=== PATIENT | male | born 1935 | race Caucasian/White ===

== ENCOUNTER 2016-05-14 11:36 | Outpatient (CLI) | payer MEDICARE, BC ==
[~2016-05-14 11:36] MED LIST: FINASTERIDE PO; LEVO137T24 PO
[2016-05-14 13:25] LABS: BASOPHILS % (AUTO) 0.5 % (0.0-2.0); EOSINOPHILS % (AUTO) 0.5 % (0.0-7.0); HEMOGLOBIN 13.4 g/dL (14.0-18.0); LYMPHOCYTES # (AUTO) 1.3 K/uL (0.8-4.8); LYMPHOCYTES % (AUTO) 23.4 % (20.5-51.5); MEAN CORPUSCULAR HEMOGLOBIN 30.1 uug (27.0-31.0); MEAN CORPUSCULAR HGB CONC 33 g/dL (32.0-37.0); MEAN CORPUSCULAR VOLUME 92.2 fL (82.0-92.0); MONOCYTES # (AUTO) 0.6 K/uL (0.1-1.30); MONOCYTES % (AUTO) 10.4 % (0.0-11.0); NEUTROPHILS # (AUTO) 3.8 K/uL (1.8-8.9); NEUTROPHILS % (AUTO) 65.2 % (38.5-71.5); PLATELET COUNT (AUTO) 199 K/uL (150-450); RED BLOOD CELL COUNT(AUTO) 4.45 MIL/uL (4.70-6.10); RED CELL DISTRIBUTION WIDTH 13.3 % (11.5-14.5); WHITE BLOOD COUNT (AUTO) 5.7 K/uL (4.0-11.2)
[2016-05-14 13:32] LABS: *BILIRUBIN,URIN NEGATIVE (NEGATIVE); *BLOOD, URINE NEGATIVE (NEGATIVE); *CLARITY,URINE CLEAR (CLEAR); *COLOR,URINE STRAW (YELLOW); *KETONES,URINE NEGATIVE (NEGATIVE); *PROTEIN,URINE NEGATIVE (NEGATIVE); *UROBILINOGEN,URINE 0.2 E.U./dl (NORMAL); LEUKOCYTE ESTERASE ,URINE TRACE (NEGATIVE); NITRITE, URINE NEGATIVE (NEGATIVE); UGLUCOSE NEGATIVE (NEGATIVE)
[2016-05-14 13:54] LABS: BACTERIA,URINE FEW /HPF (NONE SEEN); MUCUS,URINE MODERATE /LPF (0-FEW); RBC,URINE 0-3 /HPF (0-3); SQUAMOUS EPITHELIAL CELL,UR FEW /HPF (NONE SEEN)
== END 2016-05-14 23:59 | disposition home or self-care (01) ==
LOC: LAB 11:36
DX: N39.0 Urinary tract infection, site not specified (principal)
CPT/HCPCS: 36415; 85025; 87086

== ENCOUNTER 2021-02-02 08:20 | Inpatient (IN) | payer MEDICARE, BC ==
[~2021-02-02] VITALS: Ht 172.7 cm; Wt 65.8 kg
--- NOTE | 2021-02-02 08:30 | NUR ---
PT IS IN ROOM #2A. DR SCOTT EVALUATED THE PT.
[2021-02-02] MEDS ORDERED: PHENAZOPYRIDINE HCL 100 MG TABLET ONE (08:59)
[2021-02-02] MEDS ORDERED: ONDANSETRON 4 MG/2 ML VIAL ONE (08:59)
[2021-02-02] MEDS ORDERED: MORPHINE SULFATE 2 MG/1 ML DISP.SYRIN ONE (08:59)
[2021-02-02] MEDS ORDERED: ONDANSETRON 4 MG/2 ML VIAL IV ONE (09:00)
[2021-02-02] MEDS ORDERED: IV NORMAL SALINE 1000 ML BAG IV ONE ×2 (09:00→11:00)
[2021-02-02] MEDS ORDERED: CEFTRIAXONE 1 G in IV DEXTROSE 5% 50 ML IV ONE (09:00)
[2021-02-02] MEDS ORDERED: HYDROMORPHONE 1 MG/1 ML DISP.SYRIN IV ONE ×2 (09:00→09:15)
[2021-02-02] MEDS ORDERED: PHENAZOPYRIDINE HCL 100 MG TABLET PO ONE (09:00)
[2021-02-02] MEDS ORDERED: MORPHINE SULFATE 2 MG/1 ML DISP.SYRIN IV ONE (09:00)
[2021-02-02] MEDS ORDERED: HYDROMORPHONE 1 MG/1 ML DISP.SYRIN ONE (09:06)
[2021-02-02] MEDS ORDERED: ACETAMINOPHEN ES 500 MG TABLET ONE (09:12)
[2021-02-02] MEDS ORDERED: ACETAMINOPHEN ES 500 MG TABLET PO ONE (09:15)
[2021-02-02] MEDS ORDERED: CEFTRIAXONE /D5W 50ML IVPB **ER PYXIS IV ONE (09:19)
[2021-02-02] MEDS ORDERED: HYDROMORPHONE 2 MG/1 ML DISP.SYRIN ONE (09:25)
--- NOTE | 2021-02-02 09:33 | NUR ---
PT DOES NOT REMEMBER ALL THE NAMES OF HIS HOME MEDICATION.
[2021-02-02 09:43] LABS: BILIRUBIN,DIRECT 0.1 mg/dL (0.0-0.2); BILIRUBIN,TOTAL 0.7 mg/dL (0.2-1.0); CREATININE 1.1 mg/dL (0.6-1.3); POTASSIUM 3.9 mmol/L (3.5-5.1); TOTAL PROTEIN, SERUM 7.7 g/dL (6.4-8.2)
[2021-02-02 09:48] LABS: CREATINE KINASE, TOTAL 109 U/L (39-308)
[2021-02-02 10:17] LABS: *BILIRUBIN,URIN NEGATIVE (NEGATIVE); *BLOOD, URINE 3+ (NEGATIVE); *CLARITY,URINE TURBID (CLEAR); *COLOR,URINE RED (YELLOW); *KETONES,URINE NEGATIVE (NEGATIVE); *UROBILINOGEN,URINE 0.2 E.U./dl (NORMAL); LEUKOCYTE ESTERASE ,URINE 2+ (NEGATIVE); NITRITE, URINE NEGATIVE (NEGATIVE); UGLUCOSE NEGATIVE (NEGATIVE)
[2021-02-02 10:23] LABS: HEMATOCRIT 42.9 % (36.7-47.1); MEAN CORPUSCULAR HEMOGLOBIN 30.9 uug (23.8-33.4); MEAN CORPUSCULAR VOLUME 93.5 fL (73.0-96.2); PLATELET COUNT (AUTO) 106 K/uL (152-348)
[2021-02-02 11:31] LABS: RBC,URINE 80-100 /HPF (0-3)
[2021-02-02 11:32] LABS: BACTERIA,URINE FEW /HPF (NONE SEEN); SQUAMOUS EPITHELIAL CELL,UR NONE SEEN /HPF (NONE SEEN)
[2021-02-02 11:33] LABS: MUCUS,URINE FEW /LPF (0-FEW); WBC,URINE 20-50 /HPF (0-3)
--- NOTE | 2021-02-02 14:02 | NUR ---
REPORT WAS GIVEN TO PROOF TESTER. PT WAS TRANSFERED TO ROOM # 307.
[2021-02-02 14:08] VITALS: BP 95/50
--- NOTE | 2021-02-02 14:29 | NUR ---
85 YEAR OLD MALE RECEIVED TO ROOM 307 FOR UTI .PT IS AXOX4 CALL LIGHT WITH IN REACH .MD NOTIFIED FOR ADMISSION ORDERS
[2021-02-02] MEDS ORDERED: ONDANSETRON 4 MG/2 ML VIAL IV PRN (15:00)
[2021-02-02] MEDS ORDERED: Z GUARD REMEDY PASTE 57 GM TUBE TOP PRN (15:00)
[2021-02-02] MEDS: IV NS 1000 ML 1,000 ML IV PRN (15:23)
[2021-02-02 16:00] VITALS: BP 91/41
[2021-02-02] MEDS: HYDROCODONE/APAP 5-325MG TABLET PO PRN (17:16)
[2021-02-02 20:00] VITALS: BP 93/45
[2021-02-02] MEDS: PHENAZOPYRIDINE HCL 100 MG TABLET PO SCH (21:01)
[2021-02-02] MEDS ORDERED: PHENAZOPYRIDINE HCL 100 MG TABLET PO SCH (22:00)
[2021-02-02] MEDS: MORPHINE SULFATE 2 MG/1 ML DISP.SYRIN IV PRN (22:11)
[2021-02-03] VITALS: BP 99/52
[2021-02-03] MEDS: IV NS 1000 ML 1,000 ML IV PRN ×3 (00:51→20:23)
[2021-02-03] MEDS: HYDROCODONE/APAP 5-325MG TABLET PO PRN (03:22)
[2021-02-03 04:00] VITALS: BP 122/50
[2021-02-03] MEDS: PHENAZOPYRIDINE HCL 100 MG TABLET PO SCH ×3 (06:02→21:14)
[2021-02-03 06:42] LABS: MEAN CORPUSCULAR VOLUME 92.1 fL (73.0-96.2); PLATELET COUNT (AUTO) 68 K/uL (152-348)
[2021-02-03] MEDS ORDERED: LEVOTHYROXINE SODIUM 137 MCG TABLET PO SCH (07:00)
[2021-02-03 07:11] LABS: CREATININE 1.2 mg/dL (0.6-1.3); MAGNESIUM 1.7 mg/dL (1.8-2.4); PHOSPHOROUS 2.1 mg/dL (2.5-4.9); POTASSIUM 3.5 mmol/L (3.5-5.1)
--- NOTE | 2021-02-03 08:03 | NUR ---
Received in bed awake stated he's doing ok considerably. No sob noted. SR on telemonitor hr 70s. Patient is comfortable will continue to monitor.
[2021-02-03] MEDS: MORPHINE SULFATE 2 MG/1 ML DISP.SYRIN IV PRN (08:21)
[2021-02-03] MEDS ORDERED: FINASTERIDE 5 MG TABLET PO SCH (09:00)
[2021-02-03] MEDS ORDERED: MELO-105 PO (09:22)
[2021-02-03] MEDS ORDERED: FINA5TAB11 PO (09:22)
[2021-02-03] MEDS ORDERED: RAMI5CAP66 PO (09:23)
[2021-02-03] MEDS ORDERED: SIMV-49 PO (09:23)
[2021-02-03] MEDS ORDERED: CEFTRIAXONE 1 G in IV DEXTROSE 5% 50 ML IV SCH (09:30)
[2021-02-03] MEDS ORDERED: MAGNESIUM SULFATE/D5W 100 ML IV SCH (09:45)
[2021-02-03] MEDS ORDERED: LEVO125T8 PO (11:04)
--- NOTE | 2021-02-03 11:46 | NUR ---
Son Derian is here updated on patient's medical condition, requested for vit c and b complex to be given. informed dr. tan with new orders noted and carried. pt's son aware.
[2021-02-03 12:51] VITALS: BP 121/35
[2021-02-03] MEDS ORDERED: NALOXONE HCL 0.4 MG/ML AMPUL IV PRN (13:00)
[2021-02-03] MEDS ORDERED: NEUTRA PHOS PACKET PO ONE (15:15)
[2021-02-03 15:52] VITALS: BP 119/47
[2021-02-03] MEDS: ACETAMINOPHEN 325 MG TABLET PO PRN ×2 (16:18→21:14)
[2021-02-03] MEDS: RAMIPRIL 5 MG CAPSULE PO SCH (16:18)
--- NOTE | 2021-02-03 18:14 | NUR ---
Patient in bed resting no acute distress. Iv atb administered no adverse reaction noted. Iv hydration tolerated. Kept comfortable. Needs attended. Safety precautions kept. Cont to monitor. Addendum: 02/03/21 at 1820 by PAPA VIVEROS RN sr on telemonitor hr 73.
[2021-02-03] MEDS: SIMVASTATIN 40 MG TABLET PO SCH (20:16)
[2021-02-03] MEDS: OXYCODONE HCL 10 MG TAB.SR.12H PO SCH (20:17)
[2021-02-03 20:25] VITALS: BP 104/48
[2021-02-03] MEDS ORDERED: MEROPENEM 500 MG in IV NORMAL SALINE 50 ML IV ONE (21:15)
[2021-02-03] MEDS ORDERED: MEROPENEM 1 G VIAL IV ONE (21:37)
--- NOTE | 2021-02-04 00:30 | NUR ---
RECEIVED CALL FROM LAB IN REGARDS TO PATIENTS BLOOD CULTURES, GRAM POSITIVE COCCI. CALLED OUT TO DOMINGA HAZEL-MANUEL FOR FURTHER ORDERS. NO NEW ORDERS RECEIVED PER FITNESS ASSISTANT. ALL NEEDS ATTENDED. WILL CONTINUE TO MONITOR.
[2021-02-04 00:37] VITALS: BP 103/61
[2021-02-04] MEDS: ZOLPIDEM 5 MG TABLET PO PRN (02:30)
[2021-02-04 04:31] VITALS: BP 114/57
[2021-02-04] MEDS: IV NS 1000 ML 1,000 ML IV PRN ×2 (04:56→16:26)
[2021-02-04] MEDS: PHENAZOPYRIDINE HCL 100 MG TABLET PO SCH ×3 (05:27→21:01)
[2021-02-04 06:55] LABS: HEMATOCRIT 30.6 % (36.7-47.1); MEAN CORPUSCULAR HEMOGLOBIN 30.9 uug (23.8-33.4); PLATELET COUNT (AUTO) 57 K/uL (152-348)
[2021-02-04 07:05] LABS: MAGNESIUM 2.1 mg/dL (1.8-2.4); PHOSPHOROUS 1.9 mg/dL (2.5-4.9); POTASSIUM 3.4 mmol/L (3.5-5.1)
[2021-02-04] MEDS: OXYCODONE HCL 10 MG TAB.SR.12H PO SCH ×2 (08:44→21:00)
[2021-02-04] MEDS: MELOXICAM 7.5 MG TABLET PO SCH (08:45)
[2021-02-04] MEDS: ASCORBIC ACID 500 MG TABLET PO SCH (08:45)
[2021-02-04] MEDS: FINASTERIDE 5 MG TABLET PO SCH (08:45)
[2021-02-04] MEDS: VITAMIN B COMPLEX 1 TABLET PO SCH (08:53)
[2021-02-04] MEDS: RAMIPRIL 5 MG CAPSULE PO SCH ×2 (08:54→16:26)
[2021-02-04] MEDS ORDERED: LEVOTHYROXINE SODIUM 125 MCG TABLET PO SCH (09:00)
[2021-02-04] MEDS: POTASSIUM CHLORIDE 50 ML IV SCH ×2 (11:14→13:49)
[2021-02-04] MEDS: MEROPENEM 0.5 G in IV NORMAL SALINE 50 ML IV SCH ×2 (11:34→21:59)
[2021-02-04 11:52] VITALS: BP 132/57
[2021-02-04 15:00] VITALS: BP 139/59
--- NOTE | 2021-02-04 15:30 | NUR ---
pt had temp 102 notified kerzuma. Blood cx done x2 as ordered. Tylenol given cooling measure done. Will monitor patient.
[2021-02-04 17:49] LABS: BAND % (MANUAL) 10 % (0-10); LYMPHOCYTES % (MANUAL) 4 % (20-40); MONOCYTES % (MANUAL) 14 % (2-10); NEUTROPHILS % (MANUAL) 72 % (42-75)
[2021-02-04] MEDS ORDERED: SODIUM PHOSPHATE MM 15 MMOL in IV NORMAL SALINE 250 ML IV ONE (18:00)
--- NOTE | 2021-02-04 18:30 | NUR ---
Temp 99.1 Cooling measures and tylenol effective. Pt is in no acute distress. Call light is within reach.
[2021-02-04 20:36] VITALS: BP 107/55
[2021-02-04] MEDS: SIMVASTATIN 40 MG TABLET PO SCH (20:58)
--- NOTE | 2021-02-04 21:28 | NUR ---
Received patient lying in bed. Asleep but arouse to verbal stimuli. In no acute distress. Denies any pain or SOB. IV site on right FA intact and patent. Na phospate running at this time. NSR on tele with HR of 71/min. Needs assessed and attended to. Safety measure initiated and call scott within. Addendum: 02/04/21 at 2131 by SATHISH CANTU RN Patient afebrile at this time with temp of 97.9 orally.
[2021-02-05 00:18] VITALS: BP 138/63
[2021-02-05] MEDS: ZOLPIDEM 5 MG TABLET PO PRN (00:49)
[2021-02-05] MEDS: MORPHINE SULFATE 2 MG/1 ML DISP.SYRIN IV PRN (03:18)
--- NOTE | 2021-02-05 03:18 | NUR ---
Morphine 1mg prn given to pt for 8/10 pain scale on his groin area. Pt tolerated it well. Will continue to monitor.
[2021-02-05] MEDS: ACETAMINOPHEN 325 MG TABLET PO PRN ×2 (04:12→16:46)
--- NOTE | 2021-02-05 04:22 | NUR ---
Patient temp at 100.6 orally. Tylenol 650mng PO given per PRN order. Cooling measure also provided. Patient also complaining of dry painful cough. MANUEL Brumfield made aware. Awaiting for any new order. Continue to monitor.
--- NOTE | 2021-02-05 04:33 | NUR ---
MANUEL Brumfield with order to start patient on Robitussin plain 100mg every 4 hours PRN for cough. Order read back, verified and will carry out.
[2021-02-05] MEDS: GUAIFENESIN SUGAR FREE 100 MG/5 ML UDC PO PRN ×2 (04:37→11:34)
[2021-02-05 04:39] VITALS: BP 132/69
[2021-02-05] MEDS: PHENAZOPYRIDINE HCL 100 MG TABLET PO SCH ×2 (05:12→09:04)
[2021-02-05] MEDS: IV NS 1000 ML 1,000 ML IV PRN (05:12)
[2021-02-05] MEDS: LEVOTHYROXINE SODIUM 125 MCG TABLET PO SCH (06:19)
--- NOTE | 2021-02-05 06:26 | NUR ---
Patient remains AAOx4. Afebrile at this time with latest temp of 97.9 orally. In no acute distress. Patient felt relieve after taking cough medication. Denies any pain or SOB. IV site on right FA intact and patent. No side effect noted from IV antibiotic. NSR on tele with HR of 66/min. Needs assessed and attended to. Safety measure maintained and call scott within.
[2021-02-05 06:59] LABS: HEMATOCRIT 31.4 % (36.7-47.1); MEAN CORPUSCULAR HEMOGLOBIN 31.1 uug (23.8-33.4); MEAN CORPUSCULAR VOLUME 90.6 fL (73.0-96.2); PLATELET COUNT (AUTO) 54 K/uL (152-348)
[2021-02-05 07:21] LABS: CREATININE 0.9 mg/dL (0.6-1.3); MAGNESIUM 1.9 mg/dL (1.8-2.4); PHOSPHOROUS 1.8 mg/dL (2.5-4.9); POTASSIUM 3.5 mmol/L (3.5-5.1)
[2021-02-05] MEDS: MEROPENEM 0.5 G in IV NORMAL SALINE 50 ML IV SCH ×2 (09:02→17:08)
[2021-02-05] MEDS: MELOXICAM 7.5 MG TABLET PO SCH (09:03)
[2021-02-05] MEDS: ASCORBIC ACID 500 MG TABLET PO SCH (09:03)
[2021-02-05] MEDS: OXYCODONE HCL 10 MG TAB.SR.12H PO SCH ×2 (09:03→20:17)
[2021-02-05] MEDS: FINASTERIDE 5 MG TABLET PO SCH (09:03)
[2021-02-05] MEDS: VITAMIN B COMPLEX 1 TABLET PO SCH (09:06)
[2021-02-05] MEDS: RAMIPRIL 5 MG CAPSULE PO SCH ×2 (09:25→17:11)
[2021-02-05 12:00] VITALS: BP 126/51
[2021-02-05] MEDS ORDERED: POTASSIUM PHOSPHATE MM 7.5 MMOL in IV NORMAL SALINE 97.5 ML IV ONE (13:00)
[2021-02-05] MEDS: ENSURE ENLIVE (VAN) 240 ML LIQUID PO SCH ×2 (14:13→17:11)
[2021-02-05 15:33] LABS: *BILIRUBIN,URIN 1+ (NEGATIVE); *BLOOD, URINE NEGATIVE (NEGATIVE); *CLARITY,URINE CLEAR (CLEAR); *COLOR,URINE Orange (YELLOW); *KETONES,URINE 2+ (NEGATIVE); LEUKOCYTE ESTERASE ,URINE NEGATIVE (NEGATIVE); NITRITE, URINE POSITIVE (NEGATIVE); UGLUCOSE TRACE (NEGATIVE)
[2021-02-05 16:00] VITALS: BP 144/69
--- NOTE | 2021-02-05 16:30 | NUR ---
Notified dr lópez and Gloria ID. PT have temp of 101.1 cooling measures tylenol given. Pt have wheezing on right lung. CXR result given. New order received and carried out for LUIS per pharmacy and N TX.
[2021-02-05] MEDS: GUAIFENESIN/CODEINE 5 ML LIQUID UDC PO PRN ×2 (16:46→21:50)
[2021-02-05] MEDS: IPRATROPIUM BROMIDE 0.5 MG/2.5 ML NEBU NEB PRN (17:14)
[2021-02-05 17:53] LABS: BACTERIA,URINE FEW /HPF (NONE SEEN); RBC,URINE 0-3 /HPF (0-3); SQUAMOUS EPITHELIAL CELL,UR FEW /HPF (NONE SEEN); WBC,URINE 0-3 /HPF (0-3)
[2021-02-05] MEDS: VANCOMYCIN IV 1,000 MG in IV DEXTROSE 5% 250 ML IV SCH (18:34)
--- NOTE | 2021-02-05 19:30 | NUR ---
Received patient lying in bed. AAOX4. In no acute distress. Afebrile. Denies any pain or SOB at this time. On O2 at 2LPM via NC in place. O2 sat at 97%. IV site on right FA intact and patent. Vancomycin IV infusing at this time. Needs assessed and attended to. Safety measure initiated and call scott within.
[2021-02-05 20:00] VITALS: BP 148/61
[2021-02-05] MEDS: MELATONIN 3 MG TABLET PO SCH (20:17)
[2021-02-05] MEDS: SIMVASTATIN 40 MG TABLET PO SCH (20:17)
--- NOTE | 2021-02-05 21:59 | NUR ---
Inserted another PIV on right FA #[id number].
[2021-02-06] MEDS: MEROPENEM 0.5 G in IV NORMAL SALINE 50 ML IV SCH ×3 (01:05→16:03)
[2021-02-06] MEDS: IPRATROPIUM BROMIDE 0.5 MG/2.5 ML NEBU NEB PRN ×2 (01:27→14:29)
[2021-02-06] MEDS: IV NS 1000 ML 1,000 ML IV PRN ×2 (02:34→13:41)
[2021-02-06] MEDS: GUAIFENESIN/CODEINE 5 ML LIQUID UDC PO PRN ×3 (02:43→22:09)
[2021-02-06 04:00] VITALS: BP 125/54
[2021-02-06] MEDS: RAMIPRIL 5 MG CAPSULE PO SCH ×2 (05:38→16:33)
--- NOTE | 2021-02-06 05:46 | NUR ---
AAOX4. On O2 at 2LPM via NC in place. O2 sat at 97%. 2 IV site on right FA intact and patent. NO adverse effect noted from IV antibiotics. IVF infusing on 1 IV site to right FA. Cough medication given for cough and effective. Needs attended to. Safety measure maintained and call scott within.
[2021-02-06] MEDS: LEVOTHYROXINE SODIUM 125 MCG TABLET PO SCH (06:12)
[2021-02-06 07:43] LABS: BILIRUBIN,TOTAL 0.5 mg/dL (0.2-1.0); CREATININE 0.8 mg/dL (0.6-1.3); POTASSIUM 3.5 mmol/L (3.5-5.1); TOTAL PROTEIN, SERUM 5.4 g/dL (6.4-8.2)
[2021-02-06] MEDS: OXYCODONE HCL 10 MG TAB.SR.12H PO SCH ×2 (08:24→20:47)
[2021-02-06] MEDS: FINASTERIDE 5 MG TABLET PO SCH (08:24)
[2021-02-06] MEDS: ASCORBIC ACID 500 MG TABLET PO SCH (08:24)
[2021-02-06] MEDS: ENSURE ENLIVE (VAN) 240 ML LIQUID PO SCH ×2 (08:24→16:03)
[2021-02-06] MEDS: VITAMIN B COMPLEX 1 TABLET PO SCH (08:26)
[2021-02-06] MEDS: MELOXICAM 7.5 MG TABLET PO SCH (08:31)
[2021-02-06] MEDS ORDERED: POTASSIUM PHOSPHATE MM 7.5 MMOL in IV NORMAL SALINE 97.5 ML IV ONE (09:30)
[2021-02-06 12:00] VITALS: BP 139/56
[2021-02-06 12:38] LABS: HEMATOCRIT 31.6 % (36.7-47.1); MEAN CORPUSCULAR VOLUME 89.9 fL (73.0-96.2); PLATELET COUNT (AUTO) 80 K/uL (152-348)
[2021-02-06 12:42] LABS: NEUTROPHILS % (MANUAL) 0 % (42-75)
[2021-02-06] MEDS ORDERED: FUROSEMIDE 40 MG/4 ML VIAL IV ONE (15:45)
[2021-02-06 16:00] VITALS: BP 143/59
[2021-02-06] MEDS: VANCOMYCIN IV 1,000 MG in IV DEXTROSE 5% 250 ML IV SCH (17:42)
[2021-02-06 17:56] LABS: THYROID STIMULATING HORMONE 0.201 mIU/mL (0.358-3.740)
--- NOTE | 2021-02-06 18:22 | NUR ---
patient noted with wheezing during shift, IV Fluids discontinued per dr lópez, and Lasix x1 administered as ordered, breathing tx administered as well, effective, continue to monitor. no acute distress noted, urine is still with dark yellow color. patient denied urinary burning sensations while urinating, but stated that it still some uncomfortable. continue to monitor
--- NOTE | 2021-02-06 19:16 | NUR ---
Procalcitonin 17.[address] lópez, and Nera per dr lópez
--- NOTE | 2021-02-06 19:17 | NUR ---
patient is alert, oriented x4, noted with mild sob upon exertion, continue on 3 liter of o2 via nasal canula, saturating at 95% at rest, however 92% at 3 liter upon exertion. continue to monitor closely.
[2021-02-06 20:00] VITALS: BP 124/51
[2021-02-06] MEDS: MELATONIN 3 MG TABLET PO SCH (20:46)
[2021-02-07] MEDS: MEROPENEM 0.5 G in IV NORMAL SALINE 50 ML IV SCH ×3 (00:36→16:04)
[2021-02-07] MEDS: ACETAMINOPHEN 325 MG TABLET PO PRN (00:37)
[2021-02-07 04:00] VITALS: BP 131/78
[2021-02-07] MEDS: LEVOTHYROXINE SODIUM 100 MCG TABLET PO SCH (06:12)
[2021-02-07 07:45] LABS: CREATININE 0.8 mg/dL (0.6-1.3); POTASSIUM 3.4 mmol/L (3.5-5.1)
[2021-02-07] MEDS: MAGNESIUM HYDROXIDE 30 ML LIQUID UDC PO PRN (07:59)
[2021-02-07] MEDS: ASCORBIC ACID 500 MG TABLET PO SCH (08:00)
[2021-02-07] MEDS: RAMIPRIL 5 MG CAPSULE PO SCH ×2 (08:00→16:49)
[2021-02-07] MEDS: VITAMIN B COMPLEX 1 TABLET PO SCH (08:00)
[2021-02-07] MEDS: OXYCODONE HCL 10 MG TAB.SR.12H PO SCH ×2 (08:00→20:01)
[2021-02-07] MEDS: MELOXICAM 7.5 MG TABLET PO SCH (08:00)
[2021-02-07] MEDS: FINASTERIDE 5 MG TABLET PO SCH (08:00)
[2021-02-07] MEDS: ENSURE ENLIVE (VAN) 240 ML LIQUID PO SCH ×2 (08:34→16:49)
[2021-02-07] MEDS ORDERED: POTASSIUM CHLORIDE 20 MEQ TAB.PRT.SR PO ONE (09:15)
[2021-02-07 15:54] VITALS: BP 134/65
[2021-02-07] MEDS: GUAIFENESIN/CODEINE 5 ML LIQUID UDC PO PRN ×2 (16:49→23:35)
[2021-02-07] MEDS: VANCOMYCIN IV 1,000 MG in IV DEXTROSE 5% 250 ML IV SCH (17:18)
[2021-02-07] MEDS: MELATONIN 3 MG TABLET PO SCH (20:01)
[2021-02-07 22:00] VITALS: BP 135/58
[2021-02-07] MEDS: IPRATROPIUM BROMIDE 0.5 MG/2.5 ML NEBU NEB PRN (23:21)
[2021-02-08] MEDS: MEROPENEM 0.5 G in IV NORMAL SALINE 50 ML IV SCH ×2 (00:02→09:06)
[2021-02-08] MEDS: OXYCODONE HCL 10 MG TAB.SR.12H PO SCH ×4 (00:09→22:10)
[2021-02-08] MEDS: IPRATROPIUM BROMIDE 0.5 MG/2.5 ML NEBU NEB PRN (05:35)
[2021-02-08 06:05] VITALS: BP 128/57
[2021-02-08] MEDS: LEVOTHYROXINE SODIUM 100 MCG TABLET PO SCH (06:07)
[2021-02-08 07:01] LABS: HEMATOCRIT 31.5 % (36.7-47.1); MEAN CORPUSCULAR HEMOGLOBIN 30.1 uug (23.8-33.4); MEAN CORPUSCULAR VOLUME 90.1 fL (73.0-96.2); PLATELET COUNT (AUTO) 119 K/uL (152-348)
[2021-02-08 07:02] LABS: NEUTROPHILS % (MANUAL) 0 % (42-75)
[2021-02-08 07:15] LABS: BILIRUBIN,TOTAL 0.5 mg/dL (0.2-1.0); CREATININE 0.7 mg/dL (0.6-1.3); MAGNESIUM 2.1 mg/dL (1.8-2.4); PHOSPHOROUS 2.2 mg/dL (2.5-4.9); TOTAL PROTEIN, SERUM 5.6 g/dL (6.4-8.2)
[2021-02-08 08:00] VITALS: BP 145/66
--- NOTE | 2021-02-08 08:00 | NUR ---
awake, alert and oriented, denies of pain at this time, on 3l/nc 02- sat at 95%, explained plan of care- verbalized understanding, needs attended, safety measures maintained, call light within reach
[2021-02-08] MEDS: ENSURE ENLIVE (VAN) 240 ML LIQUID PO SCH ×2 (08:36→17:22)
[2021-02-08] MEDS: ASCORBIC ACID 500 MG TABLET PO SCH (08:41)
[2021-02-08] MEDS: MELOXICAM 7.5 MG TABLET PO SCH (08:42)
[2021-02-08] MEDS: VITAMIN B COMPLEX 1 TABLET PO SCH (08:43)
[2021-02-08] MEDS: RAMIPRIL 5 MG CAPSULE PO SCH ×2 (08:54→16:51)
[2021-02-08] MEDS: FINASTERIDE 5 MG TABLET PO SCH (09:53)
[2021-02-08] MEDS ORDERED: NEUTRA PHOS PACKET PO ONE (10:15)
[2021-02-08] MEDS: GUAIFENESIN/CODEINE 5 ML LIQUID UDC PO PRN ×3 (10:54→21:10)
--- NOTE | 2021-02-08 10:54 | NUR ---
medicated for cough with relief
[2021-02-08 11:45] VITALS: BP 124/63
[2021-02-08 16:00] VITALS: BP 135/60
[2021-02-08] MEDS: MEROPENEM 1 G in IV NORMAL SALINE 100 ML IV SCH (16:51)
[2021-02-08] MEDS ORDERED: ZOLPIDEM 5 MG TABLET PO PRN (17:00)
[2021-02-08] MEDS: VANCOMYCIN IV 1,000 MG in IV DEXTROSE 5% 250 ML IV SCH (18:37)
[2021-02-08 20:00] VITALS: BP 141/68
--- NOTE | 2021-02-08 20:00 | NUR ---
RECEIVED PATIENT AWAKE IN BED. A/O X4. DENIES ANY PAIN OR DISCOMFORT AT THIS TIME. NO RESP. DISTRESS NOTED. ON RA SATING 94%. VS WNL. HEPLOCK INTACT AND NOTED TO RIGHT FA #22 GAUGE. CALL LIGHT IN REACH. ALL NEEDS ATTENDED. WILL CONTINUE TO MONITOR AND ASSESS.
[2021-02-08] MEDS: MELATONIN 3 MG TABLET PO SCH (21:00)
--- NOTE | 2021-02-08 21:10 | NUR ---
PATIENT AWAKE IN BED, PATIENT REFUSED ROUTINE OXYCONTIN 10MG PO, STATING HE DOES NOT HAVE ANY PAIN AT THIS TIME. WASTED IN PYXIS AND MED DISPOSAL WITH RN.
--- NOTE | 2021-02-08 22:15 | NUR ---
PATIENT AWAKE IN BED. UNABLE TO SLEEP, AMBIEN INEFFECTIVE AT THIS TIME. PATIENT IS C/O PAIN FROM COUGHING. PATIENT WAS PREVIOUSLY PRN COUGH MEDICATION, BUT ASKING IF HE CAN TAKE HIS OXYCONTIN 10MG FOR HIS PAIN. PATIENT GIVEN OXYCONTIN 10MG PO FOR PAIN ORDERED. VS WNL. CALL LIGHT IN REACH. ALL NEEDS ATTENDED. WILL CONTINUE TO MONITOR AND ASSESS.
[2021-02-09] MEDS: MEROPENEM 1 G in IV NORMAL SALINE 100 ML IV SCH ×3 (01:00→09:16)
[2021-02-09 04:49] VITALS: BP 148/70
[2021-02-09] MEDS: VANCOMYCIN IV 1,000 MG in IV DEXTROSE 5% 250 ML IV SCH ×2 (05:41→06:15)
[2021-02-09] MEDS: GUAIFENESIN/CODEINE 5 ML LIQUID UDC PO PRN ×2 (05:53→11:50)
--- NOTE | 2021-02-09 06:00 | NUR ---
PATIENT AWAKE SITTING IN CHAIR AT BEDSIDE. PATIENTS VANCOMYCIN INFUSING TO RIGHT FA PER RN. INFORMED RN THAT IV SITE IS LEAKING. PATIENT REFUSED FOR RE-INSERTION OF IV HEPLOCK STATING THAT HE IS GOING HOME THIS AM AND DOES NOT WANT TO BE POKED. EDUCATED PATIENT ON IMPORTANCE OF IV ANTIBIOTICS. PATIENT STILL REFUSED BOTH IV AND IV MEDICATION. RN NOTIFIED OF PATIENTS REFUSAL. ALL NEEDS ATTENDED.
[2021-02-09] MEDS: LEVOTHYROXINE SODIUM 100 MCG TABLET PO SCH (06:02)
[2021-02-09] MEDS: ENSURE ENLIVE (VAN) 240 ML LIQUID PO SCH (09:16)
[2021-02-09] MEDS: ASCORBIC ACID 500 MG TABLET PO SCH (09:17)
[2021-02-09] MEDS: OXYCODONE HCL 10 MG TAB.SR.12H PO SCH (09:17)
[2021-02-09] MEDS: MELOXICAM 7.5 MG TABLET PO SCH (09:17)
[2021-02-09] MEDS: FINASTERIDE 5 MG TABLET PO SCH (09:17)
[2021-02-09] MEDS: RAMIPRIL 5 MG CAPSULE PO SCH (09:18)
[2021-02-09] MEDS: VITAMIN B COMPLEX 1 TABLET PO SCH (09:18)
--- NOTE | 2021-02-09 10:00 | NUR ---
SEEN BY PATRICIO SOUZA. PATIENT REFUSED TO HAVE IV INSERTED, & REFUSING ALL IV MEDS.
[2021-02-09] MEDS ORDERED: GUAI5SYR4 PO (11:45)
[2021-02-09] MEDS ORDERED: LEVO500T90 PO (11:45)
[2021-02-09] MEDS ORDERED: ACID1TAB4 PO (11:45)
[2021-02-09] MEDS ORDERED: ALBU8.5H8 INH (11:45)
[2021-02-09] MEDS ORDERED: MULT-594 PO (11:45)
[2021-02-09] MEDS ORDERED: LEVO100T10 PO (11:45)
[2021-02-09] MEDS: MAGNESIUM HYDROXIDE 30 ML LIQUID UDC PO PRN (11:50)
[2021-02-09] MEDS ORDERED: DOCU-141 PO (11:54)
[2021-02-09] MEDS ORDERED: levoFLOXacin 750 MG TABLET PO ONE (12:00)
[2021-02-09 12:11] VITALS: BP 150/67
--- NOTE | 2021-02-09 13:00 | NUR ---
PREPARED FOR DISCHARGE.
--- NOTE | 2021-02-09 13:30 | NUR ---
DISCHARGED VIA W/C, ACCOMPANIED BY DONNA CELESTE TO [id number] IN AUTO. NO C/O DISCOMFORT.
[2021-02-10 18:06] LABS: *VITAMIN D 25-OH, D2 <1.0 ng/mL (.)
== END 2021-02-09 13:20 | disposition home health service (06) | DRG 871 ==
LOC: ER 08:26 → TELE3 12:12 → TRANSITION 12:19 → TELE3 14:00 → MEDSURG3 02-05 18:17
PROVIDERS: ADMIT Student in an Organized Health Care Education/Training Program; ATTEND Internal Medicine
DX: A41.9 Sepsis, unspecified organism (principal); J18.9 Pneumonia, unspecified organism; N17.0 Acute kidney failure with tubular necrosis; E43 Unspecified severe protein-calorie malnutrition; N39.0 Urinary tract infection, site not specified; D68.69 Other thrombophilia; E83.39 Other disorders of phosphorus metabolism; E89.0 Postprocedural hypothyroidism; E87.6 Hypokalemia; N40.0 Benign prostatic hyperplasia without lower urinary tract symptoms; K40.20 Bilateral inguinal hernia, without obstruction or gangrene, not specified as recurrent; K56.41 Fecal impaction; K59.00 Constipation, unspecified; M19.90 Unspecified osteoarthritis, unspecified site; R31.0 Gross hematuria; D64.9 Anemia, unspecified; D69.6 Thrombocytopenia, unspecified; Z66 Do not resuscitate; E05.80 Other thyrotoxicosis without thyrotoxic crisis or storm; K57.30 Diverticulosis of large intestine without perforation or abscess without bleeding; E83.52 Hypercalcemia; Z85.850 Personal history of malignant neoplasm of thyroid; Z20.822 Contact with and (suspected) exposure to COVID-19; Z74.09 Other reduced mobility
CPT/HCPCS: 36415; 70030-TC; 71045; 73502; 83605; 83735; 83970; 84100; 84443; 85025; 85730; 87040; 87077; 87086; 93005; 94640; 97161; A4663; A9150; G0378; J0696; J1170; J1940; J2185; J2270; J2405; J3370; J3475; J3480; J3490; J3590; J7030; J7050; J7060